=== PATIENT | female | born 1950 | race Caucasian/White ===

== ENCOUNTER 2021-04-17 13:30 | Inpatient (IN) ==
[2021-04-17] MEDS ORDERED: ASPIRIN 325 MG TABLET PO STA (14:28)
[2021-04-17 14:52] LABS: Basophils % 0.4 % (0.0-0.8); Eosinophils % 0.1 % (0.00-10.9); Hematocrit 42.7 VOL% (35.7-47.0); Hemoglobin 13.5 GM/DL (12.0-16.0); Immature Granulocytes % 0.4 %; Immature Granulocytes Absolute 0.03 #; Lymphocytes # 1.3 10*3/uL (1.4-4.0); Mean Corpuscular HGB Conc 31.6 GM/DL (32-36); Mean Corpuscular Volume 92.8 FL (87-102); Mean Platelet Volume 12.4 FL (9.6-12.0); Monocytes % 6.6 % (1.7-12.7); Neutrophils % 74.5 % (38.7-73.9); Platelet Count 163 T/CUMM (130-400); Red Cell Distribution Width 13.2 % (9.3-17.3)
[2021-04-17 15:07] LABS: INR 1.9; PT Patient Result 20.5 SECS (10.5-12.0)
[2021-04-17 15:28] LABS: Bilirubin,Total 0.6 MG/DL (0.20-1.00); Osmolality,Calculated 286.3 MOS/KG (273-304); Potassium 5.5 MMOL/L (3.5-5.1); Total Protein 6.8 G/DL (6.4-8.2)
[2021-04-17 15:47] LABS: Bilirubin,Urine Negative (Negative); Blood, Urine Small mg/dL (Negative); Glucose,Urine (UA) Negative (Negative); Hyaline Casts,Urine 1 /LPF (0-3); Ketones,Urine Negative (Negative); Mucus,Urine Occasional /LPF (Occasional); Nitrite,Urine Negative (Negative); Protein,Urine 30 MG/DL; RBC,Urine 2 /HPF (0-4); Squamous Epithelial Cell,Urine Occasional /HPF (0-10); Urine Appearance CLEAR (Clear); Urine Color Yellow (Yellow); Urine Specific Gravity 1.009 (1.001-1.035); Urine Urobilinogen < 2.0 EU/DL (0.2-1.0)
[2021-04-17] MEDS ORDERED: cefTRIAXone 1,000 MG in SODIUM CHLORIDE 0.9% 100 ML IV STA (15:54)
[2021-04-17] MEDS ORDERED: DIAZEPAM 5 MG TABLET PO ONE (16:20)
[2021-04-17] MEDS ORDERED: ONDANSETRON 4 MG/2 ML VIAL IV PRN (16:21)
[2021-04-17] MEDS ORDERED: MAGNESIUM SULF RIDER 4 GM/100 ML PREMIX IV PRN (16:21)
[2021-04-17] MEDS ORDERED: ZALEPLON 5 MG CAPSULE PO PRN (16:21)
[2021-04-17] MEDS ORDERED: BISACODYL 5 MG TABLET PO PRN (16:21)
[2021-04-17] MEDS ORDERED: diphenhydrAMINE CAP 25 MG CAPSULE PO ONE (16:30)
[2021-04-17] MEDS ORDERED: MONTELUKAST 10 MG TABLET PO PRN (16:31)
[2021-04-17] MEDS ORDERED: NON-FORMULARY MEDICATION (Omeprazole 40 MG capsule,delayed release(DR/EC)) PO PRN (16:31)
[2021-04-17] MEDS ORDERED: FUROSEMIDE 20 MG TABLET PO PRN (16:31)
[2021-04-17] MEDS ORDERED: CETIRIZINE 10 MG TABLET PO PRN (16:31)
[2021-04-17] MEDS ORDERED: hydrALAZINE 20 MG/1 ML VIAL IV PRN (16:32)
[2021-04-17] MEDS ORDERED: fentaNYL 100 MCG/2 ML VIAL ONE (16:47)
[2021-04-17] MEDS ORDERED: HEPARIN/NACL 0.9% 2 UNITS/ML 2,000 UNIT/1,000 ML BAG IV ONE (16:47)
[2021-04-17] MEDS ORDERED: MIDAZOLAM 2 MG/2 ML VIAL ONE (16:47)
[2021-04-17] MEDS ORDERED: LIDOCAINE 1% 20 ML VIAL ONE (16:47)
[2021-04-17] MEDS ORDERED: VERAPAMIL 5 MG/2 ML VIAL ONE (17:02)
[2021-04-17] MEDS ORDERED: NITROGLYCERIN DRIP 50 MG/250 ML BOTTLE IV ONE (17:02)
[2021-04-17] MEDS ORDERED: HEPARIN 5,000 UNIT/1 ML VIAL ONE (17:04)
[2021-04-17] MEDS ORDERED: ceFAZolin 1,000 MG VIAL IRRIG ONE (17:22)
[2021-04-17] MEDS ORDERED: LINACLOTIDE 145 MCG CAPSULE PO PRN (18:04)
[2021-04-17] MEDS: ALBUTEROL 1.25 MG/3 ML NEB RESP TX SCH (19:25)
[2021-04-17] MEDS: GABAPENTIN 300 MG CAPSULE PO SCH (21:13)
[2021-04-17] MEDS: ATORVASTATIN 10 MG TABLET PO SCH (21:13)
[2021-04-17] MEDS: SERTRALINE 50 MG TABLET PO SCH (21:13)
[2021-04-17] MEDS: BUDESONIDE/FORMOTEROL 160-4.5 INHALER 6 GM INH SCH (21:14)
[2021-04-17] MEDS: CARBOXYMETHYLCELLULOSE 1% OPH SOLN BOTH EYES SCH (21:14)
[2021-04-18 01:18] LABS: Calcium 9.2 MG/DL (8.5-10.1); Osmolality,Calculated 284.3 MOS/KG (273-304); Potassium 3.9 MMOL/L (3.5-5.1)
[2021-04-18] MEDS: ALBUTEROL 1.25 MG/3 ML NEB RESP TX SCH ×4 (01:19→19:10)
[2021-04-18 01:23] LABS: INR 2.1; PT Patient Result 22.5 SECS (10.5-12.0)
[2021-04-18 01:24] LABS: Risk Ratio 3.21
[2021-04-18] MEDS: SODIUM CHLORIDE 0.45% 1,000 ML IV SCH ×3 (01:28→15:08)
[2021-04-18 01:33] LABS: Basophils % 0.6 % (0.0-0.8); Eosinophils # 0.1 10*3/uL (0.0-0.87); Eosinophils % 1.1 % (0.00-10.9); Hemoglobin 12.4 GM/DL (12.0-16.0); Immature Granulocytes % 1.1 %; Immature Granulocytes Absolute 0.05 #; Lymphocytes # 1.2 10*3/uL (1.4-4.0); Lymphocytes % 26.4 % (21.3-54.2); Mean Corpuscular HGB Conc 31.8 GM/DL (32-36); Mean Corpuscular Volume 92.6 FL (87-102); Mean Platelet Volume 12.3 FL (9.6-12.0); Monocytes % 7.5 % (1.7-12.7); Neutrophils % 63.3 % (38.7-73.9); Platelet Count 127 T/CUMM (130-400); Red Blood Count 4.21 MC/CUMM (3.8-5.5); Red Cell Distribution Width 13.3 % (9.3-17.3); White Blood Count 4.7 T/CUMM (4-12)
[2021-04-18] MEDS ORDERED: HEPARIN/NACL 0.9% 2 UNITS/ML 1,000 UNIT/500 ML BAG IV ONE (07:33)
[2021-04-18] MEDS ORDERED: ceFAZolin 1,000 MG VIAL ONE (07:33)
[2021-04-18] MEDS ORDERED: MIDAZOLAM 2 MG/2 ML VIAL ONE ×2 (07:33→07:55)
[2021-04-18] MEDS ORDERED: TISSUE ADHESIVE 1 EACH APPLICATOR TOP ONE (07:33)
[2021-04-18] MEDS ORDERED: fentaNYL 100 MCG/2 ML VIAL ONE (07:33)
[2021-04-18] MEDS ORDERED: LIDOCAINE 1% 20 ML VIAL ONE ×2 (07:33→08:04)
[2021-04-18] MEDS ORDERED: hydrALAZINE 20 MG/1 ML VIAL ONE (08:47)
[2021-04-18] MEDS ORDERED: ACETAMINOPHEN 325 MG TABLET PO PRN (09:02)
[2021-04-18] MEDS ORDERED: oxyCODONE/ACETAMINOPHEN 5-325 MG TABLET PO PRN (09:02)
[2021-04-18] MEDS: CARBOXYMETHYLCELLULOSE 1% OPH SOLN BOTH EYES SCH ×2 (10:54→21:00)
[2021-04-18] MEDS: PANTOPRAZOLE 40 MG TABLET PO SCH (10:54)
[2021-04-18] MEDS: BUDESONIDE/FORMOTEROL 160-4.5 INHALER 6 GM INH SCH ×2 (10:54→21:00)
[2021-04-18] MEDS ORDERED: WARFARIN 5 MG TABLET PO SCH (18:00)
[2021-04-18] MEDS: GABAPENTIN 300 MG CAPSULE PO SCH (20:59)
[2021-04-18] MEDS: ATORVASTATIN 10 MG TABLET PO SCH (20:59)
[2021-04-18] MEDS: SERTRALINE 50 MG TABLET PO SCH (21:00)
[2021-04-18] MEDS ORDERED: CELECOXIB 200 MG CAPSULE PO SCH (21:00)
[2021-04-19] MEDS: SODIUM CHLORIDE 0.45% 1,000 ML IV SCH (04:25)
[2021-04-19 04:59] LABS: Basophils % 0.7 % (0.0-0.8); Eosinophils # 0.1 10*3/uL (0.0-0.87); Eosinophils % 1.6 % (0.00-10.9); Hematocrit 41.2 VOL% (35.7-47.0); Hemoglobin 12.7 GM/DL (12.0-16.0); Immature Granulocytes % 0.2 %; Immature Granulocytes Absolute 0.01 #; Lymphocytes # 1.1 10*3/uL (1.4-4.0); Lymphocytes % 18.1 % (21.3-54.2); Mean Corpuscular HGB Conc 30.8 GM/DL (32-36); Mean Corpuscular Volume 94.5 FL (87-102); Mean Platelet Volume 11.6 FL (9.6-12.0); Monocytes % 6.7 % (1.7-12.7); Neutrophils % 72.7 % (38.7-73.9); Platelet Count 117 T/CUMM (130-400); Red Blood Count 4.36 MC/CUMM (3.8-5.5); Red Cell Distribution Width 13.4 % (9.3-17.3); White Blood Count 6.1 T/CUMM (4-12)
[2021-04-19 05:07] LABS: INR 1.9; PT Patient Result 20.3 SECS (10.5-12.0)
[2021-04-19 05:27] LABS: Calcium 9.2 MG/DL (8.5-10.1); Osmolality,Calculated 292.7 MOS/KG (273-304)
[2021-04-19] MEDS: ALBUTEROL 1.25 MG/3 ML NEB RESP TX SCH ×3 (08:04→12:00)
[2021-04-19] MEDS: BUDESONIDE/FORMOTEROL 160-4.5 INHALER 6 GM INH SCH (08:44)
[2021-04-19] MEDS: CARBOXYMETHYLCELLULOSE 1% OPH SOLN BOTH EYES SCH (08:44)
[2021-04-19] MEDS: PANTOPRAZOLE 40 MG TABLET PO SCH (08:44)
[2021-04-19] MEDS ORDERED: METOPROLOL TARTRATE 25 MG TABLET PO SCH (09:00)
[2021-04-19 12:09] VITALS: BP 170/69
== END 2021-04-19 13:00 | disposition home or self-care (01) | DRG 243 ==
LOC: N.ED 13:30 → N.TELES 16:40 → N.EDINP 17:20
PROVIDERS: ADMIT Internal Medicine Cardiovascular Disease; ATTEND Internal Medicine Cardiovascular Disease